=== PATIENT | female | born 1995 | race Caucasian/White ===

== ENCOUNTER 2023-08-09 22:37 | Emergency (ER) | payer SELFPAY ==
[2023-08-09 23:01] LABS: BASOPHILS ABSOLUTE AUTO 0.07 K/uL (0.00-0.20); BASOPHILS PERCENT AUTO 1.2 % (0.0-1.0); EOSINOPHILS ABSOLUTE AUTO 0.08 K/uL (0.00-0.45); EOSINOPHILS PERCENT AUTO 1.4 % (0.0-6.0); HEMATOCRIT 42.1 % (37.0-47.0); HEMOGLOBIN 13.2 g/dL (12.0-16.0); IMMATURE GRAN ABSOLUTE AUTO 0.02 K/uL (0.00-0.05); IMMATURE GRAN PERCENT AUTO 0.3 % (0.0-0.4); LYMPHOCYTES PERCENT AUTO 42.7 % (24.0-44.0); MEAN CORPUSCULAR HEMOGLOBIN 23.5 pg (28.0-32.0); MEAN CORPUSCULAR HGB CONC 31.4 g/dL (32.0-36.0); MEAN PLATELET VOLUME 9.7 fL (9.4-12.3); MONOCYTES ABSOLUTE AUTO 0.46 K/uL (0.00-0.80); MONOCYTES PERCENT AUTO 7.8 % (0.0-8.0); NEUTROPHILS ABSOLUTE AUTO 2.73 K/uL (1.80-7.70); NEUTROPHILS PERCENT AUTO 46.6 % (41.0-71.0); PLATELET COUNT,PLT 400 K/uL (150-400); RED BLOOD CELL COUNT 5.61 M/uL (4.10-5.30); WHITE BLOOD CELL COUNT,WBC 5.86 K/uL (3.9-11.3)
[2023-08-09] MEDS: Sodium Chloride 0.9% 1,000 ML IV ONE ×2 (23:05→23:55)
[2023-08-09] MEDS: Insulin Regular, Human 100 Units/ML 10 ML Vial IVPUSH ONE (23:06)
[2023-08-09] MEDS: Sodium Chloride 0.9% 2.5 ML Syringe FLUSH PRN (23:09)
[2023-08-09] MEDS: Sodium Chloride 0.9% 10 ML Syringe FLUSH PRN (23:09)
[2023-08-09 23:15] LABS: A/G RATIO 0.7 (0.9-1.6); BILIRUBIN TOTAL 0.8 mg/dL (0.2-1.0); CALCIUM 8.5 mg/dL (8.5-10.1); CARBON DIOXIDE,CO2 15.5 mmol/L (21.0-32.0); CREATININE 0.9 mg/dL (0.6-1.0); EST CRCL DRUG DOSING (CG) 82.25 mL/min; POTASSIUM,K 3.7 mmol/L (3.5-5.1); PROTEIN TOTAL,TP 7.4 g/dL (6.4-8.2)
[2023-08-10 00:20] LABS: APPEARANCE,URINE CLEAR; COLOR,URINE YELLOW; GLUCOSE,URINE >=1000 mg/dL (NEGATIVE); KETONES,URINE >=80 mg/dL (NEGATIVE); LEUKOCYTE ESTERASE,URINE NEGATIVE (NEGATIVE); NITRITE,URINE NEGATIVE (NEGATIVE); OCCULT BLOOD,URINE NEGATIVE (NEGATIVE); PROTEIN,URINE NEGATIVE (NEGATIVE); UROBILINOGEN,URINE 0.2 EU/dL (<2.0)
[2023-08-10 00:23] LABS: BILIRUBIN,URINE SMALL (NEGATIVE)
[2023-08-10 01:38] LABS: CALCIUM 7.6 mg/dL (8.5-10.1); CARBON DIOXIDE,CO2 18.2 mmol/L (21.0-32.0); CREATININE 0.7 mg/dL (0.6-1.0); EST CRCL DRUG DOSING (CG) 105.74 mL/min; POTASSIUM,K 3.6 mmol/L (3.5-5.1)
== END 2023-08-10 02:00 | disposition home or self-care (01) ==
LOC: MW.ED 22:37
DX: E10.10 Type 1 diabetes mellitus with ketoacidosis without coma (principal); E10.65 Type 1 diabetes mellitus with hyperglycemia
CPT/HCPCS: 36415; 80048; 80053; 81003; 81025; 82947; 85025; 96360; 96361; 99284; J3490; J7030; J1815-GY

== ENCOUNTER 2023-10-26 09:47 | Emergency (ER) | payer SELFPAY | END 2023-10-26 12:29 | disposition home or self-care (01) | LOC: MW.ED 09:47 | DX: Z34.91 Encounter for supervision of normal pregnancy, unspecified, first trimester (principal); Z79.4 Long term (current) use of insulin; O24.011 Pre-existing type 1 diabetes mellitus, in pregnancy, first trimester; E10.9 Type 1 diabetes mellitus without complications | CPT/HCPCS: 36415; 84703; 99282 ==

== ENCOUNTER 2023-11-10 14:11 | Emergency (ER) | payer MEDICAID ==
[2023-11-10 14:44] LABS: BASOPHILS ABSOLUTE AUTO 0.07 K/uL (0.00-0.20); BASOPHILS PERCENT AUTO 0.9 % (0.0-1.0); EOSINOPHILS ABSOLUTE AUTO 0.08 K/uL (0.00-0.45); HEMATOCRIT 40.4 % (37.0-47.0); HEMOGLOBIN 13.3 g/dL (12.0-16.0); IMMATURE GRAN ABSOLUTE AUTO 0.03 K/uL (0.00-0.05); IMMATURE GRAN PERCENT AUTO 0.4 % (0.0-0.4); LYMPHOCYTES ABSOLUTE AUTO 2.45 K/uL (1.00-4.80); LYMPHOCYTES PERCENT AUTO 30.9 % (24.0-44.0); MEAN CORPUSCULAR HEMOGLOBIN 26.8 pg (28.0-32.0); MEAN CORPUSCULAR HGB CONC 32.9 g/dL (32.0-36.0); MEAN CORPUSCULAR VOLUME 81.5 fL (83.0-99.0); MONOCYTES ABSOLUTE AUTO 0.46 K/uL (0.00-0.80); MONOCYTES PERCENT AUTO 5.8 % (0.0-8.0); NEUTROPHILS ABSOLUTE AUTO 4.84 K/uL (1.80-7.70); PLATELET COUNT,PLT 333 K/uL (150-400); RED BLOOD CELL COUNT 4.96 M/uL (4.10-5.30); WHITE BLOOD CELL COUNT,WBC 7.93 K/uL (3.9-11.3)
[2023-11-10 14:56] LABS: APPEARANCE,URINE CLEAR; BILIRUBIN,URINE NEGATIVE (NEGATIVE); COLOR,URINE YELLOW; GLUCOSE,URINE >=1000 mg/dL (NEGATIVE); KETONES,URINE NEGATIVE (NEGATIVE); LEUKOCYTE ESTERASE,URINE NEGATIVE (NEGATIVE); NITRITE,URINE NEGATIVE (NEGATIVE); OCCULT BLOOD,URINE TRACE-INTACT (NEGATIVE); PH,URINE 5.5 (5.0-8.0); PROTEIN,URINE NEGATIVE (NEGATIVE); UROBILINOGEN,URINE 0.2 EU/dL (<2.0)
[2023-11-10 15:14] LABS: BACTERIA,URINE FEW (NEGATIVE); EPITHELIAL CELLS,URINE FEW (NONE-FEW); RBC,URINE 0-2 (0-2/HPF); WBC,URINE 0-2 (0-5/HPF)
[2023-11-10 15:20] LABS: A/G RATIO 0.7 (0.9-1.6); ALBUMIN 2.8 g/dL (3.4-5.0); BILIRUBIN TOTAL 0.3 mg/dL (0.2-1.0); CALCIUM 8.6 mg/dL (8.5-10.1); CREATININE 0.6 mg/dL (0.6-1.0); EST CRCL DRUG DOSING (CG) 123.37 mL/min; POTASSIUM,K 4.2 mmol/L (3.5-5.1); PROTEIN TOTAL,TP 6.9 g/dL (6.4-8.2)
== END 2023-11-10 15:44 | disposition home or self-care (01) ==
LOC: MW.ED 14:11
DX: O20.0 Threatened abortion (principal); O24.011 Pre-existing type 1 diabetes mellitus, in pregnancy, first trimester; E10.9 Type 1 diabetes mellitus without complications; Z75.8 Other problems related to medical facilities and other health care; Z79.4 Long term (current) use of insulin; Z3A.00 Weeks of gestation of pregnancy not specified
CPT/HCPCS: 36415; 76817; 76817-26; 80053; 81001; 84702; 85025; 86900; 86901; 99283; 99284

== ENCOUNTER 2024-01-16 10:40 | Emergency (ER) | payer MEDICAID ==
[2024-01-16 11:13] LABS: APPEARANCE,URINE SLT CLOUDY; BILIRUBIN,URINE NEGATIVE (NEGATIVE); COLOR,URINE YELLOW; GLUCOSE,URINE NEGATIVE (NEGATIVE); KETONES,URINE NEGATIVE (NEGATIVE); LEUKOCYTE ESTERASE,URINE SMALL (NEGATIVE); NITRITE,URINE NEGATIVE (NEGATIVE); OCCULT BLOOD,URINE MODERATE (NEGATIVE); PROTEIN,URINE NEGATIVE (NEGATIVE); UROBILINOGEN,URINE 0.2 EU/dL (<2.0)
[2024-01-16 11:23] LABS: RBC,URINE 0-1 (0-2/HPF)
[2024-01-16 11:24] LABS: BACTERIA,URINE FEW (NEGATIVE); EPITHELIAL CELLS,URINE FEW (NONE-FEW); MUCUS,URINE LIGHT (NONE-MOD)
[2024-01-16 11:36] LABS: BASOPHILS ABSOLUTE AUTO 0.08 K/uL (0.00-0.20); EOSINOPHILS ABSOLUTE AUTO 0.15 K/uL (0.00-0.45); EOSINOPHILS PERCENT AUTO 1.9 % (0.0-6.0); HEMOGLOBIN 13.9 g/dL (12.0-16.0); IMMATURE GRAN ABSOLUTE AUTO 0.01 K/uL (0.00-0.05); IMMATURE GRAN PERCENT AUTO 0.1 % (0.0-0.4); LYMPHOCYTES ABSOLUTE AUTO 3.52 K/uL (1.00-4.80); LYMPHOCYTES PERCENT AUTO 44.3 % (24.0-44.0); MEAN CORPUSCULAR HEMOGLOBIN 27.5 pg (28.0-32.0); MEAN CORPUSCULAR HGB CONC 33.1 g/dL (32.0-36.0); MEAN PLATELET VOLUME 9.6 fL (9.4-12.3); MONOCYTES PERCENT AUTO 6.3 % (0.0-8.0); NEUTROPHILS ABSOLUTE AUTO 3.68 K/uL (1.80-7.70); NEUTROPHILS PERCENT AUTO 46.4 % (41.0-71.0); PLATELET COUNT,PLT 354 K/uL (150-400); RED BLOOD CELL COUNT 5.06 M/uL (4.10-5.30); WHITE BLOOD CELL COUNT,WBC 7.94 K/uL (3.9-11.3)
[2024-01-16 12:03] LABS: A/G RATIO 0.9 (0.9-1.6); ALBUMIN 3.2 g/dL (3.4-5.0); BILIRUBIN TOTAL 0.3 mg/dL (0.2-1.0); CALCIUM 8.9 mg/dL (8.5-10.1); CARBON DIOXIDE,CO2 23.6 mmol/L (21.0-32.0); CREATININE 0.7 mg/dL (0.6-1.0); EST CRCL DRUG DOSING (CG) 104.78 mL/min; PROTEIN TOTAL,TP 6.7 g/dL (6.4-8.2)
== END 2024-01-16 14:55 | disposition left against medical advice (07) ==
LOC: MW.ED 10:40
DX: O20.9 Hemorrhage in early pregnancy, unspecified (principal); O24.011 Pre-existing type 1 diabetes mellitus, in pregnancy, first trimester; E10.9 Type 1 diabetes mellitus without complications; Z3A.00 Weeks of gestation of pregnancy not specified; Z75.8 Other problems related to medical facilities and other health care; Z79.4 Long term (current) use of insulin
CPT/HCPCS: 36415; 76830; 76830-26; 80053; 81001; 81025; 84702; 85025; 86900; 86901; 87086; 99284